=== PATIENT | male | born 1985 | race African-American/Black ===

== ENCOUNTER 2017-05-30 17:29 | Emergency (ER) | payer SELFPAY, OTHER | END 2017-05-30 17:45 | disposition left against medical advice (07) | LOC: E/R 17:29 | DX: Z53.21 Procedure and treatment not carried out due to patient leaving prior to being seen by health care provider (principal) ==

== ENCOUNTER 2017-11-28 03:41 | Emergency (ER) | payer OTHER ==
[2017-11-28 15:28] LABS: RAPID PLASMA REAGIN REACTIVE (NR)
[2017-11-28 15:28] LABS: RPR TITER 1:16 (0)
[2017-12-01 20:37] LABS: FLUORESCENT TREPONEMAL AB REACTIVE (NON-REACTIVE)
== END 2017-11-28 06:55 | disposition home or self-care (01) ==
LOC: FTE 03:41
DX: N48.89 Other specified disorders of penis (principal); Z21 Asymptomatic human immunodeficiency virus [HIV] infection status
CPT/HCPCS: 36415; 86592; 87285; 87591; 99283

== ENCOUNTER 2017-11-30 17:13 | Emergency (ER) | payer SELFPAY, OTHER | END 2017-11-30 18:45 | disposition left against medical advice (07) | LOC: FTE 18:45 | DX: Z53.21 Procedure and treatment not carried out due to patient leaving prior to being seen by health care provider (principal) ==